=== PATIENT | female | born 2000 | race African-American/Black ===

== ENCOUNTER 2018-10-08 19:29 | Emergency (ER) | payer OTHER ==
[~2018-10-08] VITALS: Ht 162.6 cm; Wt 54.4 kg
[2018-10-08] MEDS ORDERED: FAMOTIDINE 20 MG/2 ML VIAL ONE (19:39)
[2018-10-08] MEDS ORDERED: methylPREDNISolone SOD SUCC PF 125 MG/2 ML VIAL. ONE (19:39)
[2018-10-08] MEDS ORDERED: methylPREDNISolone SOD SUCC PF 125 MG/2 ML VIAL. IV ONE (20:00)
[2018-10-08] MEDS ORDERED: predniSONE 20 MG TABLET PO ONE (20:00)
[2018-10-08] MEDS ORDERED: FAMOTIDINE 20 MG/2 ML VIAL IVP ONE (20:00)
[2018-10-08] MEDS ORDERED: PRED20TA PO (20:05)
--- NOTE | 2018-10-08 20:05 | PHYS DOC ---
Past History Past Medical History: No Pertinent History, Migraines Past Surgical History: No Surgical History, Other Smoking: Non-smoker Alcohol Use: None Drug Use: None Adult General Chief Complaint Chief Complaint: ALLERGIC REACTION HPI HPI Patient is a 18 year old female who presents with complaint of facial swelling and hives. Patient states she has been having hives intermittently over the past month. Seen by primary doctor within the last week and told that she would need to follow with an pull tab dealer for further testing. The patient states she is unsure what is attributing to her hives. Denies any previous history of known allergies and is not currently taking any medications on a regular basis. The patient states that 2 hours ago she took Benadryl due to worsening symptoms. Patient states that she started having swelling around her eyes as well as her lips. Denies any swelling of her tongue or throat and denies any shortness of breath or lightheadedness. Patient has had hives worsening today. Denies any fever. Review of Systems Review of Systems Constitutional: Denies fever or chills [] Eyes: Denies change in visual acuity, redness, or eye pain [] HENT: Facial swelling, denies nasal congestion or sore throat [] Respiratory: Denies cough or shortness of breath [] Cardiovascular: Denies chest pain or edema[] GI: Denies abdominal pain, nausea, vomiting, bloody stools or diarrhea [] : Denies dysuria or hematuria [] Musculoskeletal: Denies back pain or joint pain [] Integument: [place][] Neurologic: Denies headache, focal weakness or sensory changes [] All other systems were reviewed and found to be within normal limits, except as documented in this note. Current Medications Current Medications Current Medications Medications (Trade) Dose Ordered Sig/Andrei Start Time Stop Time Status Last Admin Dose Admin Famotidine (Pepcid Vial) 20 mg 1X ONCE 10/08/18 20:00 10/08/18 20:01 10/08/18 19:49 20 MG Methylprednisolone Sodium Succinate (SOLU-Medrol 125MG VIAL) 125 mg 1X ONCE 10/08/18 20:00 10/08/18 20:01 10/08/18 19:49 125 MG Allergies Allergies Allergies Coded Allergies Type Severity Reaction Last Updated Verified No Known Drug Allergies 01/21/14 No Physical Exam Physical Exam Constitutional: Alert, afebrile, no acute distress. [] HENT: Normocephalic, atraumatic, bilateral external ears normal, mild lip swelling, oropharynx moist, no tongue or pharyngeal swelling, no oral exudates, nose normal. [] Eyes: PERRLA, EOMI, periorbital edema bilaterally, conjunctiva normal, no discharge. [] Neck: Normal range of motion, no tenderness, supple, no stridor. [] Cardiovascular:Heart rate regular rhythm, no murmur [] Lungs & Thorax: Bilateral breath sounds clear to auscultation [] Abdomen: Bowel sounds normal, soft, no tenderness, no masses, no pulsatile masses. [] Skin: Warm, dry, urticarial rash present along anterior chest and bilateral upper arms. [] Back: No tenderness, no CVA tenderness. [] Extremities: No tenderness, no cyanosis, no clubbing, ROM intact, no edema. [] Neurologic: Alert and oriented X 3, normal motor function, normal sensory function, no focal deficits noted. [] Current Patient Data Vital Signs Vital Signs Date Time Temp Pulse Resp B/P (MAP) Pulse Ox O2 Delivery O2 Flow Rate FiO2 10/08/18 19:33 98.7 95 18 100 Room Air Lab Results Not performed EKG EKG Not performed[] Radiology/Procedures Radiology/Procedures Not performed[] Course & Med Decision Making Course & Med Decision Making Pertinent Labs and Imaging studies reviewed. (See chart for details) Patient was given IV Pepcid and Solu-Medrol in the emergency department. Symptoms improving at this time. Given additional oral prednisone. Patient discharged with redness on prescription and advised to take 1-2 Benadryl every 6 -8 hours as needed for itching and hives. Recommended return to emergency department for any worsening symptoms. Patient was understanding and in agreement with treatment plan.[] Dragon Disclaimer Dragon Disclaimer This electronic medical record was generated, in whole or in part, using a voice recognition dictation system. Departure Departure: Impression: Primary Impression: Allergic reaction Disposition: 01 HOME, SELF-CARE Condition: IMPROVED Referrals: LARISSA JONES MD (PCP) Patient Instructions: Hives Additional Instructions: Follow-up with your primary doctor in the next 3-4 days for reevaluation. Return to emergency department for any worsening symptoms. Scripts Prednisone (PREDNISONE) 20 Mg Tablet 3 TAB PO DAILY, #15 TAB Prov: REGGIE MAYER MD 10/08/18 Problem Qualifiers Primary Impression: Allergic reaction Encounter type: initial encounter Qualified Codes: T78.40XA - Allergy, unspecified, initial encounter REGGIE MAYER MD Oct 08, 2018 20:05
[2018-10-08 20:11] VITALS: BP 125/83
== END 2018-10-08 20:14 | disposition home or self-care (01) ==
LOC: ER 19:29
DX: T78.40XA Allergy, unspecified, initial encounter (principal); G43.909 Migraine, unspecified, not intractable, without status migrainosus; X58.XXXA Exposure to other specified factors, initial encounter
CPT/HCPCS: 96374; 96375; 99283; J2930; J3490; J7512

== ENCOUNTER 2019-06-14 22:40 | Emergency (ER) | payer SELFPAY ==
[~2019-06-14] VITALS: Ht 162.6 cm; Wt 54.4 kg
[~2019-06-14 22:40] MED LIST: PRED20TA PO
--- NOTE | 2019-06-14 22:44 | ED.ADGEN ---
Past History Past Medical History: No Pertinent History, Migraines Past Surgical History: No Surgical History, Other Smoking: Non-smoker Alcohol Use: None Drug Use: None Adult General Chief Complaint Chief Complaint " I got this allergic reaction... "to milk.. and I ate some things with milk in it....I started have an allergic response at about 3 PM.... It just gotten worse." HPI HPI Patient is a 19 year old female who presents with above hx and complaints of facial and lip swelling after ingesting some products that had and it. 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 No other new exposures. Onset of symptoms started at approximately 1500 hrs. today. Patient denies any wheezing or stridor. Patient denies any ingestion of any other meds or foods. Patient normally follows with Sammy for medical issues. Review of Systems Review of Systems Constitutional: Denies fever or chills [] Eyes: Denies change in visual acuity, redness, or eye pain [] HENT: Denies nasal congestion or sore throat [. Has]complaints of lip and facial swelling Respiratory: Denies cough or shortness of breath [] Cardiovascular: No additional information not addressed in HPI [] GI: Denies abdominal pain, nausea, vomiting, bloody stools or diarrhea [] : Denies dysuria or hematuria [] Musculoskeletal: Denies back pain or joint pain [] Integument: Denies rash or skin lesions [] Neurologic: Denies headache, focal weakness or sensory changes [] Endocrine: Denies polyuria or polydipsia [] All other systems were reviewed and found to be within normal limits, except as documented in this note. Family History Family History Noncontributory Current Medications Current Medications Current Medications Medications (Trade) Dose Ordered Sig/Andrei Start Time Stop Time Status Last Admin Dose Admin Albuterol Sulfate (Ventolin Hfa Inhaler) 2 puff 1X ONCE 06/14/19 23:15 06/14/19 23:16 DC 06/14/19 23:23 2 PUFF Albuterol/ Ipratropium (Duoneb) 3 ml 1X ONCE 06/14/19 23:15 06/14/19 23:16 DC 06/14/19 23:23 3 ML Diphenhydramine HCl (Benadryl) 50 mg 1X ONCE 06/14/19 23:30 06/14/19 23:31 DC 06/14/19 23:09 50 MG Famotidine (Pepcid Vial) 20 mg 1X ONCE 06/14/19 23:30 06/14/19 23:31 DC 06/14/19 23:09 20 MG Lactated Ringer's 1,000 ml @ 1,000 mls/hr 1X ONCE 06/14/19 23:15 06/15/19 00:14 DC 06/14/19 23:08 1,000 MLS/HR Magnesium Hydroxide (Milk Of Magnesia) 2,400 mg 1X ONCE 06/14/19 23:15 06/14/19 23:16 DC 06/15/19 00:34 2,400 MG Methylprednisolone Sodium Succinate (SOLU-Medrol 125MG VIAL) 125 mg 1X ONCE 06/14/19 23:30 06/14/19 23:31 DC 06/14/19 23:08 125 MG Allergies Allergies Allergies Coded Allergies Type Severity Reaction Last Updated Verified No Known Drug Allergies 01/21/14 No Physical Exam Physical Exam Constitutional: Well developed, well nourished, moderate acute distress, non- toxic appearance. [] HENT: Normocephalic, atraumatic, bilateral external ears normal, oropharynx moist, no oral exudates, nose normal. Swelling on right side of face and lips. No soft tissue swelling of tongue or posterior airway Eyes: PERRLA, EOMI, conjunctiva normal, no discharge. [] Neck: Normal range of motion, no tenderness, supple, no stridor. [] Cardiovascular:Heart rate regular rhythm, no murmur [] Lungs & Thorax: Bilateral breath sounds clear to auscultation [] Abdomen: Bowel sounds normal, soft, no tenderness, no masses, no pulsatile masses. [] Skin: Warm, dry, no erythema, no rash. [] Back: No tenderness, no CVA tenderness. [] Extremities: No tenderness, no cyanosis, no clubbing, ROM intact, no edema. [] Neurologic: Alert and oriented X 3, normal motor function, normal sensory function, no focal deficits noted. [] Psychologic: Affect anxious, judgement normal, mood normal. [] Current Patient Data Vital Signs Vital Signs Date Time Temp Pulse Resp B/P (MAP) Pulse Ox O2 Delivery O2 Flow Rate FiO2 06/14/19 23:45 100 Room Air Lab Results Laboratory Tests Test 8/18/19 23:10 06/15/19 00:13 Urine Collection Type Unknown Urine Color Yellow Urine Clarity Clear Urine pH 8.0 Urine Specific [place] 1.020 Urine Protein Neg (NEG-TRACE) Urine Glucose (UA) Neg mg/dL (NEG) Urine Ketones (Stick) Neg mg/dL (NEG) Urine Blood Neg (NEG) Urine Nitrite Neg (NEG) Urine Bilirubin Neg (NEG) Urine Urobilinogen Dipstick 1 mg/dL (0.2 mg/dL) Urine Leukocyte Esterase Neg (NEG) Urine RBC 0 /HPF (0-2) Urine WBC Occ /HPF (0-4) Urine Squamous Epithelial Cells Few /LPF Urine Bacteria 0 /HPF (0-FEW) Urine Opiates Screen Neg (NEG) Urine Methadone Screen Neg (NEG) Urine Barbiturates Neg (NEG) Urine Phencyclidine Screen Neg (NEG) Urine Amphetamine/Methamphetamine Neg (NEG) Urine Benzodiazepines Screen Neg (NEG) Urine Cocaine Screen Neg (NEG) Urine Cannabinoids Screen Neg (NEG) Urine Ethyl Alcohol Neg (NEG) POC Urine HCG, Qualitative hcg negative (Negative) EKG EKG [] Radiology/Procedures Radiology/Procedures [] Course & Med Decision Making Course & Med Decision Making Pertinent Labs and Imaging studies reviewed. (See chart for details) Patient to avoid all milk products. Patient to take Zantac 150 mg twice day. Patient take Benadryl 25 mg 4 times a day. Patient take prednisone 50 mg a day. Patient uses MDI 2 puffs 4 times a day. Pt. currently declines admission. Will stay with [facility]. [] Final Impression Final Impression 1. Allergic Reaction[] Dragon Disclaimer Dragon Disclaimer This electronic medical record was generated, in whole or in part, using a voice recognition dictation system. Dragon Disclaimer This chart was dictated in whole or in part using Voice Recognition software in a busy, high-work load, and often noisy Emergency Department environment. It may contain unintended and wholly unrecognized errors or omissions. BAUDILIO OWENS MD Jun 14, 2019 22:44
[2019-06-14] MEDS ORDERED: methylPREDNISolone SOD SUCC PF 125 MG/2 ML VIAL. ONE (22:47)
[2019-06-14] MEDS ORDERED: diphenhydrAMINE 50 MG/ML VIAL ONE (22:47)
[2019-06-14] MEDS ORDERED: FAMOTIDINE 20 MG/2 ML VIAL ONE (22:47)
[2019-06-14] MEDS ORDERED: MAGNESIUM HYDROXIDE 2,400 MG/30 ML ORAL.SUSP. PO ONE (23:15)
[2019-06-14] MEDS ORDERED: ALBUTEROL SULFATE 8GM INHALER. INH ONE (23:15)
[2019-06-14] MEDS ORDERED: IPRATRPIUM/ALBUTEROL 0.5/2.5MG 3 ML NEBU. NEB ONE (23:15)
[2019-06-14] MEDS ORDERED: IV RINGERS SOLUTION,LACTATED 1,000 ML IV ONE (23:15)
[2019-06-14] MEDS ORDERED: FAMOTIDINE 20 MG/2 ML VIAL IVP ONE (23:30)
[2019-06-14] MEDS ORDERED: diphenhydrAMINE 50 MG/ML VIAL IVP ONE (23:30)
[2019-06-14] MEDS ORDERED: methylPREDNISolone SOD SUCC PF 125 MG/2 ML VIAL. IV ONE (23:30)
[2019-06-15 00:37] LABS: BARBITURATES NEG (NEG); BENZODIAZEPINES NEG (NEG); CANNABINOIDS NEG (NEG); COCAINE NEG (NEG); METHADONE NEG (NEG); OPIATES NEG (NEG); PHENCYCLIDINE NEG (NEG)
[2019-06-15 00:47] LABS: BACTERIA,URINE 0 /HPF (0-FEW); BILIRUBIN,URINE NEG (NEG); CLARITY,URINE CLEAR; COLOR,URINE YELLOW; GLUCOSE,URINE NEG (NEG); NITRITE,URINE NEG (NEG); RBC,URINE 0 /HPF (0-2); SQUAMOUS EPITHELIAL CELL,UR FEW /LPF; UROBILINOGEN,URINE 1 mg/dL (0.2 mg/dL); WBC,URINE OCC /HPF (0-4)
[2019-06-15 00:49] LABS: AMPHETAMINE/METHAMPHETAMINE NEG (NEG)
[2019-06-15] MEDS ORDERED: RANI-376 PO (02:03)
[2019-06-15] MEDS ORDERED: PRED50TA PO (02:03)
[2019-06-15 02:10] VITALS: BP 118/72
== END 2019-06-15 02:10 | disposition home or self-care (01) ==
LOC: ER 22:40
DX: T78.1XXA Other adverse food reactions, not elsewhere classified, initial encounter (principal); K13.0 Diseases of lips; G43.909 Migraine, unspecified, not intractable, without status migrainosus; X58.XXXA Exposure to other specified factors, initial encounter
CPT/HCPCS: 36415; 80307; 81001; 81025; 94640; 96374; 96375; 99284; J1200; J2930; J3490; J7120; J7613; J7620; 99285-25

== ENCOUNTER 2019-08-15 19:04 | Emergency (ER) | payer OTHER ==
[~2019-08-15] VITALS: Ht 162.6 cm; Wt 54.4 kg
[~2019-08-15 19:04] MED LIST changes: +PRED50TA PO; +RANI-376 PO
[2019-08-15 19:15] VITALS: BP 141/71
--- NOTE | 2019-08-15 19:41 | PHYS DOC ---
Past History Past Medical History: No Pertinent History Past Surgical History: No Surgical History Smoking: Non-smoker Alcohol Use: None Drug Use: None Adult General Chief Complaint Chief Complaint: SKIN RASH/ABSCESS HPI HPI Patient is a 19-year-old female presents with a painful lump on her left buttock. This started yesterday. Her boyfriend squeezed it because there was a "head" on it and got out purulent material. This also significantly helped with the pain. It reoccurred today. Patient is concerned because there is a hole there. And it is also still leaking. Patient denies any fever. She does have some nasal congestion from allergies or a cold. Denies any nausea or vomiting. Increased pain with touch of the area. She has not been on any recent antibiotics. Pain is moderate in intensity.[] Review of Systems Review of Systems Constitutional: Denies fever or chills [] Eyes: Denies change in visual acuity, redness, or eye pain [] HENT: Denies ear pain or sore throat [] Respiratory: Denies cough or shortness of breath [] Cardiovascular: No chest pain or palpitations[] GI: Denies abdominal pain, nausea, vomiting, bloody stools or diarrhea [] : Denies dysuria or hematuria [] Musculoskeletal: Denies back pain or joint pain [] Integument: See history of present illness[] Neurologic: Denies headache, focal weakness or sensory changes [] Endocrine: Denies polyuria or polydipsia [] All other systems were reviewed and found to be within normal limits, except as documented in this note. Allergies Allergies Allergies Coded Allergies Type Severity Reaction Last Updated Verified No Known Drug Allergies 01/21/14 No Physical Exam Physical Exam Constitutional: Well developed, well nourished, no acute distress, non-toxic appearance. [] HENT: Normocephalic, atraumatic, bilateral external ears normal, oropharynx moist, no oral exudates, nose normal. [] Eyes: PERRLA, EOMI, conjunctiva normal, no discharge. [] Neck: Normal range of motion, no tenderness, supple, no stridor. [] Cardiovascular:Heart rate regular rhythm, no murmur [] Lungs & Thorax: Bilateral breath sounds clear to auscultation [] Abdomen: Bowel sounds normal, soft, no tenderness, no masses, no pulsatile masses. [] Skin: Warm, dry, left buttock there is a 3 cm firm region with a central hole that is 3 mm in diameter. There is minimal purulent drainage. Induration is present.[] Back: No tenderness, no CVA tenderness. [] Extremities: No tenderness, no cyanosis, no clubbing, ROM intact, no edema. [] Neurologic: Alert and oriented X 3, normal motor function, normal sensory function, no focal deficits noted. [] Psychologic: Affect normal, judgement normal, mood normal. [] Current Patient Data Vital Signs Vital Signs Date Time Temp Pulse Resp B/P (MAP) Pulse Ox O2 Delivery O2 Flow Rate FiO2 08/15/19 19:15 99.5 105 16 99 Room Air EKG EKG [] Radiology/Procedures Radiology/Procedures [] Course & Med Decision Making Course & Med Decision Making Pertinent Labs and Imaging studies reviewed. (See chart for details) ED course: Patient arrived, was placed in bed, and tolerated exam well. The exam was performed with a fudger present. Findings and plan were discussed with the patient who voiced understanding. All questions were answered. She was discharged in improved condition. Medical decision making: Patient appears to have a cutaneous abscess that is draining. No evidence of systemic toxicity. No evidence of Ac-Rainer syndrome, toxic up several necrolysis, nor other significant illness[] Dragon Disclaimer Dragon Disclaimer This electronic medical record was generated, in whole or in part, using a voice recognition dictation system. Departure Departure: Impression: Primary Impression: Cutaneous abscess of buttock Disposition: HOME, SELF-CARE Condition: IMPROVED Referrals: PCPHOLLIE (PCP) Patient Instructions: Abscess Additional Instructions: Follow-up with your regular doctor in 2 days. If you do not have regular doctor list of local clinics will be provided. Apply warm compresses for 15 minutes at a time, at least 4 times a day to the area. Take the medication as prescribed. Return to the ER if worsening pain, fever of more than 101, or any other concerns. Scripts Meloxicam (MELOXICAM) 7.5 Mg Tablet 7.5 MG PO DAILY for PAIN, #20 TAB Prov: MELVIN NOE DO 08/15/19 Sulfamethoxazole/Trimethoprim (BACTRIM DS TABLET) 1 Each Tablet 1 TAB PO BID for cutaneous abscess, #20 TAB Prov: MELVIN NOE DO 08/15/19 MELVIN NOE DO Aug 15, 2019 19:41
[2019-08-15 19:53] LABS: U PREG PATIENT NEGATIVE (NEG)
[2019-08-15] MEDS ORDERED: SULF1TAB24 PO (20:04)
[2019-08-15] MEDS ORDERED: MELO7.5T29 PO (20:04)
== END 2019-08-15 20:15 | disposition home or self-care (01) ==
LOC: ER 19:04
DX: L02.31 Cutaneous abscess of buttock (principal)
CPT/HCPCS: 81025; 99283

== ENCOUNTER 2020-06-06 13:13 | Emergency (ER) | payer OTHER ==
[~2020-06-06] VITALS: Ht 162.6 cm; Wt 60.2 kg
[~2020-06-06 13:13] MED LIST changes: +MELO7.5T29 PO; +SULF1TAB24 PO
[2020-06-06] MEDS ORDERED: ACETAMINOPHEN 500 MG TABLET PO ONE ×2 (14:13→14:15)
[2020-06-06] MEDS ORDERED: ONDANSETRON PF 4 MG/2 ML VIAL. ONE (14:13)
[2020-06-06] MEDS ORDERED: FAMOTIDINE 20 MG/2 ML VIAL ONE (14:14)
[2020-06-06] MEDS ORDERED: ONDANSETRON PF 4 MG/2 ML VIAL. IVP ONE (14:15)
[2020-06-06] MEDS ORDERED: IV NORMAL SALINE 1,000ML 1,000 ML IV ONE (14:15)
--- NOTE | 2020-06-06 14:38 | EKG ---
[address] [address] Test Date: 2020-06-06 Test Time: 13:35:40 Pat Name: PIERRE MOORE Department: Room: Gender: F [employer] Pilot: [id number] : 2000 Requested By: BOBBI LANGLEY Order Number: [id number] Reading MD: Measurements Intervals [place] Rate: 112 P: 42 [place]: 134 QRS: 30 QRSD: 70 T: 2 QT: 316 QTc: 433 Interpretive Statements SINUS TACHYCARDIA OTHERWISE NORMAL ECG RI6.02 Compared to ECG 06/06/2020 13:34:36 No significant changes
[2020-06-06] MEDS ORDERED: FAMOTIDINE 20 MG/2 ML VIAL IVP ONE (14:45)
[2020-06-06 15:08] LABS: BASO % 0 % (0-3); EOS % 0 % (0-3); HEMOGLOBIN 11.6 g/dL (12.0-15.5); LYMPH # 0.8 x10^3/uL (1.0-4.8); LYMPH % 9 % (24-48); MEAN CORPUSCULAR HEMOGLOBIN 29 pg (25-35); MEAN CORPUSCULAR HGB CONC 33 g/dL (31-37); MEAN CORPUSCULAR VOLUME 87 fL (79-100); MONO # 0.7 x10^3/uL (0.0-1.1); MONO % 7 % (0-9); NEUT # 7.9 x10^3uL (1.8-7.7); NEUT % 84 % (31-73); PLATELET COUNT 276 x10^3/uL (140-400); RED BLOOD COUNT 4.01 x10^6/uL (3.50-5.40); RED CELL DISTRIBUTION WIDTH 12.7 % (11.5-14.5); WHITE BLOOD COUNT 9.5 x10^3/uL (4.0-11.0)
[2020-06-06 15:09] LABS: CALCIUM 8.2 mg/dL (8.5-10.1); CREATININE 0.5 mg/dL (0.6-1.0); GFR 186.7; POTASSIUM 3.4 mmol/L (3.5-5.1)
[2020-06-06 15:15] LABS: ALBUMIN 2.5 g/dL (3.4-5.0); ALBUMIN/GLOBULIN RATIO 0.6 (1.0-1.7); MAGNESIUM 1.7 mg/dL (1.8-2.4); TOTAL BILIRUBIN 0.9 mg/dL (0.2-1.0); TOTAL PROTEIN 6.4 g/dL (6.4-8.2)
[2020-06-06 15:42] LABS: BACTERIA,URINE MOD /HPF (0-FEW); BILIRUBIN,URINE NEG (NEG); CLARITY,URINE HAZY; COLOR,URINE YELLOW; GLUCOSE,URINE NEG (NEG); NITRITE,URINE NEG (NEG); SQUAMOUS EPITHELIAL CELL,UR MOD /LPF; UROBILINOGEN,URINE >=8.0 mg/dL (0.2 mg/dL); WBC,URINE >40 /HPF (0-4)
[2020-06-06 15:43] LABS: HYALINE CASTS, URINE OCC /HPF
[2020-06-06] MEDS ORDERED: MAGNESIUM CHLORIDE ER 64 MG TABLET.ER PO ONE (15:45)
[2020-06-06] MEDS ORDERED: POTASSIUM CHLORIDE 20 MEQ TABLET.ER. PO ONE (15:45)
[2020-06-06] MEDS ORDERED: CEPH-264 PO (16:28)
[2020-06-06] MEDS ORDERED: ONDA4TAB12 PO (16:28)
--- NOTE | 2020-06-06 16:28 | PHYS DOC ---
Past History Past Medical History: No Pertinent History Past Surgical History: No Surgical History Smoking: Non-smoker Alcohol Use: None Drug Use: None General Adult EDM: Chief Complaint: NAUSEA/VOMITING/DIARRHEA HPI: HPI: Patient is a [age] year old [sex] who presents with [] Review of Systems: Review of Systems: Constitutional: Denies fever or chills Eyes: Denies change in visual acuity HENT: Denies nasal congestion or sore throat Respiratory: Denies cough or shortness of breath Cardiovascular: Denies chest pain or edema GI: Denies abdominal pain, nausea, vomiting, bloody stools or diarrhea : Denies dysuria Musculoskeletal: Denies back pain or joint pain Integument: Denies rash Neurologic: Denies headache, focal weakness or sensory changes Endocrine: Denies polyuria or polydipsia Lymphatic: Denies swollen glands Psychiatric: Denies depression or anxiety Heart Score: Risk Factors: Risk Factors: DM, Current or recent (<one month) smoker, HTN, HLP, family history of CAD, obesity. Risk Scores: Score 0 - 3: 2.5% MACE over next 6 weeks - Discharge Home Score 4 - 6: 20.3% MACE over next 6 weeks - Admit for Clinical Observation Score 7 - 10: 72.7% MACE over next 6 weeks - Early Invasive Strategies Current Medications: Current Meds: Current Medications Medications (Trade) Dose Ordered Sig/Andrei Start Time Stop Time Status Last Admin Dose Admin Acetaminophen (Tylenol) 500 mg STK-MED ONCE 06/06/20 14:13 06/06/20 14:14 DC Famotidine (Pepcid Vial) 20 mg 1X ONCE 06/06/20 14:45 06/06/20 14:49 DC 06/06/20 14:40 20 MG Magnesium Chloride (Mag Delay) 64 mg 1X ONCE 06/06/20 15:45 06/06/20 15:46 DC Ondansetron HCl (Zofran) 4 mg STK-MED ONCE 06/06/20 14:13 06/06/20 14:14 DC Potassium Chloride (Klor-Con) 40 meq 1X ONCE 06/06/20 15:45 06/06/20 15:46 DC Sodium Chloride 1,000 ml @ 1,000 mls/hr 1X ONCE 06/06/20 14:15 06/06/20 15:14 DC 06/06/20 14:15 1,000 MLS/HR Allergies: Allergies: Allergies Coded Allergies Type Severity Reaction Last Updated Verified No Known Drug Allergies 01/21/14 No Physical Exam: PE: Constitutional: Well developed, well nourished, no acute distress, non-toxic appearance. [] HENT: Normocephalic, atraumatic, bilateral external ears normal, oropharynx moist, no oral exudates, nose normal. [] Eyes: PERRLA, EOMI, conjunctiva normal, no discharge. [] Neck: Normal range of motion, no tenderness, supple, no stridor. [] Cardiovascular:Heart rate regular rhythm, no murmur [] Lungs & Thorax: Bilateral breath sounds clear to auscultation [] Abdomen: Bowel sounds normal, soft, no tenderness, no masses, no pulsatile masses. [] Skin: Warm, dry, no erythema, no rash. [] Back: No tenderness, no CVA tenderness. [] Extremities: No tenderness, no cyanosis, no clubbing, ROM intact, no edema. [] Neurologic: Alert and oriented X 3, normal motor function, normal sensory function, no focal deficits noted. [] Psychologic: Affect normal, judgement normal, mood normal. [] Current Patient Data: Labs: Laboratory Tests Test 06/06/20 14:25 06/06/20 14:35 White Blood Count 9.5 x10^3/uL (4.0-11.0) Red Blood Count 4.01 x10^6/uL (3.50-5.40) Hemoglobin 11.6 g/dL (12.0-15.5) L Hematocrit 35.0 % (36.0-47.0) L Mean Corpuscular Volume 87 fL (79-100) Mean Corpuscular Hemoglobin 29 pg (25-35) Mean Corpuscular Hemoglobin Concent 33 g/dL (31-37) Red Cell Distribution Width 12.7 % (11.5-14.5) Platelet Count 276 x10^3/uL (140-400) Neutrophils (%) (Auto) 84 % (31-73) H Lymphocytes (%) (Auto) 9 % (24-48) L Monocytes (%) (Auto) 7 % (0-9) Eosinophils (%) (Auto) 0 % (0-3) Basophils (%) (Auto) 0 % (0-3) Neutrophils # (Auto) 7.9 x10^3uL (1.8-7.7) H Lymphocytes # (Auto) 0.8 x10^3/uL (1.0-4.8) L Monocytes # (Auto) 0.7 x10^3/uL (0.0-1.1) Eosinophils # (Auto) 0.0 x10^3/uL (0.0-0.7) Basophils # (Auto) 0.0 x10^3/uL (0.0-0.2) Sodium Level 133 mmol/L (136-145) L Potassium Level 3.4 mmol/L (3.5-5.1) L Chloride Level 99 mmol/L (98-107) Carbon Dioxide Level 22 mmol/L (21-32) Anion Gap 12 (6-14) Blood Urea Nitrogen 3 mg/dL (7-20) L Creatinine 0.5 mg/dL (0.6-1.0) L Estimated GFR (Cockcroft-Gault) 186.7 BUN/Creatinine Ratio 6 (6-20) Glucose Level 82 mg/dL (70-99) Calcium Level 8.2 mg/dL (8.5-10.1) L Magnesium Level 1.7 mg/dL (1.8-2.4) L Total Bilirubin 0.9 mg/dL (0.2-1.0) Aspartate Amino Transferase (AST) 25 U/L (15-37) Alanine Aminotransferase (ALT) 16 U/L (14-59) Alkaline Phosphatase 140 U/L (46-116) H Total Protein 6.4 g/dL (6.4-8.2) Albumin 2.5 g/dL (3.4-5.0) L Albumin/Globulin Ratio 0.6 (1.0-1.7) L Lipase 44 U/L (73-393) L Urine Collection Type Unknown Urine Color Yellow Urine Clarity Hazy Urine pH 6.5 Urine Specific [place] 1.020 Urine Protein Neg (NEG-TRACE) Urine Glucose (UA) Neg mg/dL (NEG) Urine Ketones (Stick) Neg mg/dL (NEG) Urine Blood Neg (NEG) Urine Nitrite Neg (NEG) Urine Bilirubin Neg (NEG) Urine Urobilinogen Dipstick >=8.0 mg/dL (0.2 mg/dL) Urine Leukocyte Esterase Mod (NEG) Urine RBC 1-2 /HPF (0-2) Urine WBC >40 /HPF (0-4) Urine Squamous Epithelial Cells Mod /LPF Urine Bacteria Mod /HPF (0-FEW) Urine Hyaline Casts Occ /HPF Urine Mucus Mod /LPF Vital Signs: Vital Signs Date Time Temp Pulse Resp B/P (MAP) Pulse Ox O2 Delivery O2 Flow Rate FiO2 06/06/20 13:43 99.7 110 20 110/64 (79) 97 Room Air EKG: EKG: @1335 Sinus tachycardia at 112bpm, NO ST elevation, QRS 70ms, QT/QTc 316/433ms Radiology/Procedures: Radiology/Procedures: [] Course & Med Decision Making: Course & Med Decision Making Pertinent Labs and Imaging studies reviewed. (See chart for details) [] Dragon Disclaimer: Dragon Disclaimer: This electronic medical record was generated, in whole or in part, using a voice recognition dictation system. Departure Departure: Impression: Primary Impression: Urinary tract infection Qualified Codes: N30.00 - Acute cystitis without hematuria Additional Impressions: Qualified Codes: Z3A.33 - 33 weeks gestation of Suspected 2019 novel coronavirus infection Nausea vomiting and diarrhea Hypokalemia Hypomagnesemia Disposition: HOME/RESIDENCE PRIOR TO ADM Condition: STABLE Referrals: YESSY PEREZ MD (PCP) Patient Instructions: ABCs of , Diarrhea, [id number], Hypokalemia, Hypomagnesemia, Nausea and Vomiting, [id number], Urinary Tract Infection, [id number] Additional Instructions: You have been tested for or diagnosed with COVID-19. It is an infection caused by a new type of coronavirus. COVID-19 will cause cold-like or mild flu symptoms in most. It can cause more severe symptoms like problems breathing in some. There is no treatment for COVID-19. The body will clear the infection over time. Self-care will help to ease discomfort. Steps to Take: Self-Care Rest as needed. Healthy habits may help you feel better. Steps include: Choose healthy foods including fruits and vegetables. Drink water throughout the day. Get plenty of sleep each night. If you smoke, try to quit. It may ease breathing. Avoid alcohol. Keep Others Healthy The virus can spread to others. Droplets are released every time you sneeze or cough. The droplets can get into the mouth, nose, or eyes of people near you and lead to infection. To lower the chances of spreading COVID-19 to others: Stay at home until your doctor has said it is safe to leave. If you tested positive this will mean staying isolated until both of the following are true: At least 7 days have passed since the start of illness. You are free of fever for at least 72 hours without the use of medicine. During this time: - Avoid public areas, events, or transportation. Do not return to work or school until your doctor has said it is safe to do so. - Call ahead if you need to go to a medical center. Let them know you may have COVID-19. It will help them guide you where to go. They may also ask you to wear a facemask when you come to the office. - If you call for emergency medical services, let them know you may have COVID- 19. While at home: - Try to avoid close contact with others. Stay about 6 feet away. - If possible, spend most of your time in a separate room from others. - Use a face mask if you will be in close contact with others such as sharing a room or vehicle. - Have someone wipe down common surfaces in the home. Use household lead pastor every day on areas like doorknobs, counters, or sinks. - Cough or sneeze into a tissue. Throw the tissue away right after use. If a tissue is not available, cough or sneeze into your elbow. - Wash your hands often. Wash them after sneezing or coughing. Use soap and water and wash for at least 20 seconds. Alcohol based hand line cleaner can be used if soap and water is not available. - Do not prepare food for others. Avoid sharing personal items like forks, spoons, or toothbrushes. - Avoid close contact with pets while you are sick. There is no evidence of the virus passing to pets. This is a safety step until more is known about this virus. Isolation can be frustrating. Social interaction can help. Keep in touch with friends and family through phone and tech options. You can still interact with others in your home, just keep a safe distance of about 6 feet. Follow-up: Your doctors office will check in with you to see if there are any changes in your health. You may be asked to keep track of symptoms to share with them. They will also let you know when you are clear to be in public again. Problems to Look Out For: Contact your doctor if your recovery is not going as you expect. Get emergency care if you have problems such as: - Trouble breathing - Nonstop chest pain or pressure - Changes in awareness, confusion, or problems waking - Lips or face have bluish color - Worsening of symptoms If you think you have an emergency, call for emergency medical services right away. As taken from [facility] Cephalexin (KEFLEX) 500 Mg Capsule 1 CAP PO TID for UTI for 7 Days, #21 CAP 0 Refills Prov: BOBBI LANGLEY DO 06/06/20 Ondansetron (ONDANSETRON ODT) 4 Mg Tab.rapdis 1 TAB PO PRN Q6-8HRS PRN for NAUSEA, #16 TAB Prov: BOBBI LANGLEY DO 06/06/20 BOBBI LANGLEY DO Jun 06, 2020 16:28
[2020-06-06] MEDS ORDERED: IV NORMAL SALINE 50ML 50 ML ONE (16:44)
[2020-06-06] MEDS ORDERED: cefTRIAXone SODIUM 1 GM VIAL ONE (16:45)
[2020-06-06 17:00] VITALS: BP 107/63
--- NOTE | 2020-06-08 10:22 | NUR ---
Attempt to notify patient of COVID result, left message to call back.
--- NOTE | 2020-06-08 13:53 | NUR ---
IP: patient notified of COVID result.
== END 2020-06-06 17:05 | disposition home or self-care (01) ==
LOC: ER 13:13
DX: O23.13 Infections of bladder in pregnancy, third trimester (principal); N30.00 Acute cystitis without hematuria; O21.9 Vomiting of pregnancy, unspecified; R19.7 Diarrhea, unspecified; O99.283 Endocrine, nutritional and metabolic diseases complicating pregnancy, third trimester; E87.6 Hypokalemia; E83.42 Hypomagnesemia; Z20.828 Contact with and (suspected) exposure to other viral communicable diseases; Z3A.33 33 weeks gestation of pregnancy
CPT/HCPCS: 36415; 80053; 81001; 83690; 83735; 85025; 87086; 93005; 96361; 96374; 96375; 99284; J0696; J2405; J3490; J7030; U0003

== ENCOUNTER 2021-09-21 22:11 | Inpatient (IN) | payer SELFPAY ==
[~2021-09-21] VITALS: Ht 162.6 cm; Wt 54.1 kg
[~2021-09-21 22:11] MED LIST changes: +CEPH-264 PO; +ONDA4TAB12 PO
[2021-09-21] MEDS ORDERED: IV RINGERS SOLUTION,LACTATED 1,000 ML IV ONE (22:45)
[2021-09-21] MEDS ORDERED: ONDANSETRON PF 4 MG/2 ML VIAL. IVP ONE (22:45)
[2021-09-21] MEDS ORDERED: IBUPROFEN 600 MG TABLET. PO ONE (22:45)
[2021-09-21 22:52] LABS: BASO % 0 % (0-3); EOS % 0 % (0-3); HEMATOCRIT 41.5 % (36.0-47.0); HEMOGLOBIN 13.3 g/dL (12.0-15.5); LYMPH # 2.2 x10^3/uL (1.0-4.8); LYMPH % 17 % (24-48); MEAN CORPUSCULAR HEMOGLOBIN 27 pg (25-35); MEAN CORPUSCULAR HGB CONC 32 g/dL (31-37); MEAN CORPUSCULAR VOLUME 86 fL (79-100); MONO # 0.9 x10^3/uL (0.0-1.1); MONO % 8 % (0-9); NEUT # 9.5 x10^3uL (1.8-7.7); NEUT % 75 % (31-73); PLATELET COUNT 373 x10^3/uL (140-400); RED BLOOD COUNT 4.86 x10^6/uL (3.50-5.40); RED CELL DISTRIBUTION WIDTH 14.6 % (11.5-14.5); WHITE BLOOD COUNT 12.6 x10^3/uL (4.0-11.0)
[2021-09-21 22:56] LABS: CALCIUM 8.9 mg/dL (8.5-10.1); CREATININE 0.8 mg/dL (0.6-1.0); GFR 107.6; POTASSIUM 3.2 mmol/L (3.5-5.1)
[2021-09-21 23:02] LABS: ALBUMIN 4.1 g/dL (3.4-5.0); ALBUMIN/GLOBULIN RATIO 1.1 (1.0-1.7); TOTAL BILIRUBIN 0.6 mg/dL (0.2-1.0)
[2021-09-21 23:02] LABS: BACTERIA,URINE 0 /HPF (0-FEW); BILIRUBIN,URINE NEG (NEG); CLARITY,URINE CLEAR; COLOR,URINE YELLOW; GLUCOSE,URINE NEG (NEG); NITRITE,URINE NEG (NEG); RBC,URINE 0 /HPF (0-2); SQUAMOUS EPITHELIAL CELL,UR MOD /LPF; UROBILINOGEN,URINE 0.2 mg/dL (0.2 mg/dL)
--- NOTE | 2021-09-21 23:03 | RAD ---
XR CHEST 2V History: Cough Comparison: None. Technique: PA and lateral chest radiographs. Findings: The lungs are adequately and symmectrically inflated. No airspace consolidation, pleural effusion or pneumothorax. The cardiomediastinal silhoutte and pulmonary vasculature are within normal limits. Sof t tissues and osseous structures are unremarkable. Impression: 1. No acute cardiopulmonary process. Electronically signed by: Flo Morrell MD (09/21/2021 11:00 PM) [facility]
--- NOTE | 2021-09-21 23:41 | RAD ---
CT ABDOMEN+PELVIS WO History: Abdominal pain, fever, vomiting, short of air Comparison: None. Technique: CT abdomen pelvis without contrast. Findings: Minimal hazy left lower lobe airspace opacities. 5 mm left lower lobe nodule (axial 18). No pleural e ffusion. Rounded mass at the inferior right liver segment 6 measuring 6.6 x 4.7 x 5.9 cm. Normal gall bladder. Pancreas, spleen, adrenal glands, and kidneys are unremarkable. The stomach and small bowel are normal. No appendicitis. Mild colonic stool burden. No pericolonic inflammatory changes. The blad redd is, uterus and adnexa are unremarkable. There is no free air or free fluid. Small fat-containing umbilical hernia. The osseous structures are unremarkable. Impression: 1. Rounded mass inferior right liver segment 6 measuring up to 6.6 cm. In the absence of known hepat ic disease as is favored to represent adenoma or focal nodular hyperplasia. Recommend contrast enhanc ed liver MRI for further characterization. 2. Hazy left lower lobe opacities may represent early or mild pneumonia. 3. Left lower lobe 5 mm pulmonary nodule. In a low risk patient, no follow-up is prior. In high-risk patient optional follow-up noncontrast chest CT in 12 months. ------ Exposure: One or more of the following individualized dose reduction techniques were utilized for thi s examination: 1. Automated exposure control 2. Adjustment of the mA and/or kV according to patient size 3. Use of iterative reconstruction technique. Electronically signed by: Flo Morrell MD (09/21/2021 11:39 PM) [facility]
[2021-09-22] MEDS ORDERED: guaiFENesin/CODEINE 100mg/10mg 5 ML LIQUID PO PRN
[2021-09-22] MEDS ORDERED: levoFLOXacin 500 MG TABLET PO ONE
--- NOTE | 2021-09-22 00:14 | PHYS DOC ---
Past History Past Medical History: No Pertinent History Past Surgical History: No Surgical History Smoking: Non-smoker Alcohol Use: None Drug Use: None Adult General Chief Complaint Chief Complaint: NAUSEA/VOMITING/DIARRHEA HPI HPI Patient is a 21-year-old female who presents with a chief complaint of chills, body aches, generalized abdominal discomfort and cough. States that her daughter that lives other recently had similar symptoms but hers have now resolved. States she thinks she had a fever at home but did not take her temperature but she felt hot and had chills. Denies any rash. Denies any recent travel, traumas, chest pain, shortness of breath, vomiting, diarrhea, dysuria, hematuria or blood in the stool. Review of Systems Review of Systems Review of systems otherwise unremarkable except noted in HPI Current Medications Current Medications Current Medications Medications (Trade) Dose Ordered Sig/Andrei Start Time Stop Time Status Last Admin Dose Admin Ibuprofen (Motrin) 600 mg 1X ONCE 09/21/21 22:45 09/21/21 22:46 DC 09/21/21 22:51 600 MG Lactated Ringer's 1,000 ml @ 1,000 mls/hr 1X ONCE 09/21/21 22:45 09/21/21 23:44 DC 09/21/21 22:41 1,000 MLS/HR Ondansetron HCl (Zofran) 4 mg 1X ONCE 09/21/21 22:45 09/21/21 22:46 DC 09/21/21 22:51 4 MG Allergies Allergies Allergies Coded Allergies Type Severity Reaction Last Updated Verified No Known Drug Allergies 01/21/14 No Physical Exam Physical Exam Constitutional: Well developed, well nourished, no acute distress, non-toxic appearance. [] HENT: Normocephalic, atraumatic, bilateral external ears normal, oropharynx moist, no oral exudates, nose normal. [] Eyes: conjunctiva normal, no discharge. [] Neck: Normal range of motion, no tenderness, supple, no stridor. [] Cardiovascular:Heart rate regular rhythm, no murmur [] Lungs & Thorax: Bilateral scattered rhonchi, worse on the left, no wheezing, no increased work of breathing Abdomen: soft, no tenderness, no masses, no pulsatile masses. [] Skin: Warm, dry, no erythema, no rash. [] Back: no CVA tenderness. [] Extremities: No tenderness, ROM intact, no edema. [] Neurologic: Alert and oriented X 3, no focal deficits noted. [] Psychologic: Affect normal, judgement normal, mood normal. [] Current Patient Data Lab Results Laboratory Tests Test 09/21/21 22:20 09/21/21 22:26 09/21/21 22:30 Urine Collection Type Unknown Urine Color Yellow Urine Clarity Clear Urine pH 5.5 Urine Specific [place] >=1.030 Urine Protein Neg (NEG-TRACE) Urine Glucose (UA) Neg mg/dL (NEG) Urine Ketones (Stick) Trace mg/dL (NEG) Urine Blood Neg (NEG) Urine Nitrite Neg (NEG) Urine Bilirubin Neg (NEG) Urine Urobilinogen Dipstick 0.2 mg/dL (0.2 mg/dL) Urine Leukocyte Esterase Trace (NEG) Urine RBC 0 /HPF (0-2) Urine WBC 1-4 /HPF (0-4) Urine Squamous Epithelial Cells Mod /LPF Urine Bacteria 0 /HPF (0-FEW) POC Urine HCG, Qualitative hcg negative (Negative) White Blood Count 12.6 x10^3/uL (4.0-11.0) H Red Blood Count 4.86 x10^6/uL (3.50-5.40) Hemoglobin 13.3 g/dL (12.0-15.5) Hematocrit 41.5 % (36.0-47.0) Mean Corpuscular Volume 86 fL (79-100) Mean Corpuscular Hemoglobin 27 pg (25-35) Mean Corpuscular Hemoglobin Concent 32 g/dL (31-37) Red Cell Distribution Width 14.6 % (11.5-14.5) H Platelet Count 373 x10^3/uL (140-400) Neutrophils (%) (Auto) 75 % (31-73) H Lymphocytes (%) (Auto) 17 % (24-48) L Monocytes (%) (Auto) 8 % (0-9) Eosinophils (%) (Auto) 0 % (0-3) Basophils (%) (Auto) 0 % (0-3) Neutrophils # (Auto) 9.5 x10^3uL (1.8-7.7) H Lymphocytes # (Auto) 2.2 x10^3/uL (1.0-4.8) Monocytes # (Auto) 0.9 x10^3/uL (0.0-1.1) Eosinophils # (Auto) 0.0 x10^3/uL (0.0-0.7) Basophils # (Auto) 0.0 x10^3/uL (0.0-0.2) Sodium Level 142 mmol/L (136-145) Potassium Level 3.2 mmol/L (3.5-5.1) L Chloride Level 105 mmol/L (98-107) Carbon Dioxide Level 26 mmol/L (21-32) Anion Gap 11 (6-14) Blood Urea Nitrogen 10 mg/dL (7-20) Creatinine 0.8 mg/dL (0.6-1.0) Estimated GFR (Cockcroft-Gault) 107.6 BUN/Creatinine Ratio 13 (6-20) Glucose Level 92 mg/dL (70-99) Calcium Level 8.9 mg/dL (8.5-10.1) Total Bilirubin 0.6 mg/dL (0.2-1.0) Aspartate Amino Transferase (AST) 23 U/L (15-37) Alanine Aminotransferase (ALT) 28 U/L (14-59) Alkaline Phosphatase 88 U/L (46-116) Total Protein 8.0 g/dL (6.4-8.2) Albumin 4.1 g/dL (3.4-5.0) Albumin/Globulin Ratio 1.1 (1.0-1.7) Lipase 49 U/L (73-393) L EKG EKG [] Radiology/Procedures Radiology/Procedures [] Heart Score C/O Chest Pain: No Risk Factors: Risk Factors: DM, Current or recent (<one month) smoker, HTN, HLP, family history of CAD, obesity. Risk Scores: Risk Factors: DM, Current or recent (<one month) smoker, HTN, HLP, family history of CAD, obesity. Course & Med Decision Making Course & Med Decision Making Patient is a 21-year-old female who presents with a chief complaint of Covid/flu/cold symptoms and productive cough Vital signs notable for tachycardia. Physical exam noted above. Patient placed on monitor with IV access established with IV fluid begun. Given fluid, nausea medicine, pain medicine and cough medicine. Covid swab pending. Started on antibiotics given findings of pneumonia on CT. Discussed all findings with patient including findings on abdominal CT. Recommended admission to the hospital for continued evaluation and treatment and fluid resuscitation given tachycardia despite resuscitation. Patient grateful, verbalized understanding and agreed with plan of admission. [] Dragon Disclaimer Dragon Disclaimer This electronic medical record was generated, in whole or in part, using a voice recognition dictation system. Departure Departure: Impression: Primary Impression: Pneumonia Additional Impressions: Sepsis Person under investigation for COVID-19 Disposition: 09 ADMITTED INPATIENT Admitting Physician: Kenn Song Referrals: PCP,NO (PCP) Problem Qualifiers LINDA HUYNH MD Sep 22, 2021 00:14
[2021-09-22] MEDS ORDERED: IV RINGERS SOLUTION,LACTATED 1,000 ML IV ONE (00:15)
[2021-09-22] MEDS ORDERED: ONDANSETRON PF 4 MG/2 ML VIAL. IVP PRN (00:15)
[2021-09-22] MEDS ORDERED: AZITHROMYCIN 250 MG TABLET. PO ONE (00:15)
[2021-09-22 00:34] LABS: BARBITURATES NEG (NEG); BENZODIAZEPINES NEG (NEG); CANNABINOIDS NEG (NEG); COCAINE NEG (NEG); METHADONE NEG (NEG); OPIATES NEG (NEG); PHENCYCLIDINE NEG (NEG)
[2021-09-22 00:38] LABS: AMPHETAMINE/METHAMPHETAMINE NEG (NEG)
[2021-09-22] MEDS ORDERED: cefTRIAXone SODIUM 1 GM VIAL ONE (00:42)
[2021-09-22] MEDS ORDERED: IV NORMAL SALINE 50ML 50 ML ONE (00:42)
[2021-09-22 02:12] VITALS: BP 121/78
[2021-09-22] MEDS ORDERED: IV RINGERS SOLUTION,LACTATED 1,000 ML IV SCH (02:15)
[2021-09-22] MEDS ORDERED: ACETAMINOPHEN 325 MG TABLET PO PRN (02:15)
[2021-09-22] MEDS ORDERED: MEDR150D3 IM (02:45)
[2021-09-22 06:04] VITALS: BP 136/81
[2021-09-22 06:30] VITALS: BP 104/67
--- NOTE | 2021-09-22 09:13 | HP ---
DATE OF SERVICE: 09/22/2021 ADMIT DATE: 09/22/2021 ATTENDING PHYSICIAN: Dr. Song. CHIEF COMPLAINT: Nausea, vomiting, diarrhea and fevers. HISTORY OF PRESENT ILLNESS: The patient is a 21-year-old female admitted to the ED with new onset of chills, body aches, nausea, vomiting and diarrhea. She has a self-limiting gastroenteritis. The CT of the abdomen was unremarkable without any evidence of obstruction; however, there was a questionable infiltrate cut through the bases. The chest x-ray was entirely clear. She is a nonsmoker. She was admitted with a tentative diagnosis of pneumonia; in my exam of her, she does not have pneumonia. She most likely has a self limiting gastroenteritis. She was dehydrated. She was a bit tachycardic. By the time I saw her the next day with IV fluid resuscitation, her heart rate was down to 80 per minute. PAST MEDICAL HISTORY: Significant for two pregnancies. She has 2 children, ages 3 and 1 respectively. She is not on any prescription meds. There is no history of hypertension, heart disease, smoking or asthma. CURRENT MEDICATIONS: None. ALLERGIES: She has no known drug allergies. FAMILY HISTORY: Noncontributory. REVIEW OF SYSTEMS: Significant for the myalgias, low-grade fevers. All other systems reviewed and determined to be negative. PHYSICAL EXAMINATION: GENERAL: When I saw her, this is a pleasant young female. VITAL SIGNS: Initial vital signs showed a blood pressure of 140/70; her pulse initially was 135 per minute; by the time I saw her it was down to 80 per minute. She was afebrile and oxygen saturation 98% on room air. HEENT: Head is without trauma. Pupils are reactive. Sclerae nonicteric. Oropharynx clear. NECK: Supple, no bruits. LUNGS: Clear. CARDIOVASCULAR: Regular heart tones. ABDOMEN: Soft. EXTREMITIES: Without edema. NEUROLOGIC: Focally intact. Speech is fluent. PERTINENT LABORATORY STUDIES: The hemoglobin is 13.3 g/dL with a white count of 12,600. Her serology initially was negative for coronavirus. Urinalysis was clear. Toxicology showed no evidence of recreational drugs. Her chemistry panel showed a sodium 142, potassium 3.2 mEq. This will be followed as an outpatient. Creatinine 0.8 mg%. Transaminases are normal. CT of the abdomen as noted. ASSESSMENT: 1. A 21-year-old female with self-limiting gastroenteritis. 2. Tentative diagnosis of pneumonia has been ruled out. She does not have pneumonia at this time clinically. 3. Dehydration. 4. Tachycardia, resolved. PLAN: 1. Admission to the hospital overnight. 2. IV hydration. 3. Empiric antibiotics. 4. Diet as tolerated. FORTINO DR: Ravi TID: [id number]
--- NOTE | 2021-09-22 09:50 | DS ---
DATE OF DISCHARGE: 09/22/2021 ATTENDING PHYSICIAN: Dr. Song. FINAL DISCHARGE DIAGNOSES: 1. Self-limiting gastroenteritis, resolved. 2. Dehydration and tachycardia, resolved. 3. Asymptomatic hypokalemia. 4. Tentative diagnosis pneumonia. This has been ruled out. HISTORY AND PHYSICAL: The patient is a 21-year-old female. She is a nonsmoker. She is admitted with fevers, chills, nausea, vomiting, diarrhea. Clinically, she had a self-limiting gastroenteritis. She was tachycardic. She was admitted with dehydration. She also had a questionable infiltrate on cutting through the bases on the CT of the abdomen. Her chest x-ray was entirely clear. PHYSICAL EXAMINATION: Please see the dictated note. PERTINENT LABORATORY AND X-RAY STUDIES: Hemoglobin 13.0 g/dL, white count 12,600. Potassium slightly diminished at 3.2 mEq. This has been replaced. Transaminases are normal. Lipase is normal. CT of the abdomen as noted. Chest x-ray was entirely clear. COURSE IN THE HOSPITAL: She was admitted. She was started on IV hydration. Regular diet and empiric Rocephin. I examined the patient. She is afebrile. Her chest x-ray was clear. I do not find any evidence of pneumonia. She was sent home on the second hospital day, there are no scheduled meds. I recommended 5 more days of cephalexin 500 mg p.o. t.i.d., just in case she does have early pneumonia. She is a nonsmoker. She had a negative coronavirus serology. She was discharged then from our hospital in stable condition with explicit drug and followup care. ABEL/KELECHI DR: Ravi TID: [id number]
== END 2021-09-22 12:58 | disposition home or self-care (01) | DRG 871 ==
LOC: ER 22:11 → 1 SOUTH 09-22 00:08
PROVIDERS: ADMIT Hospitalist; ATTEND Hospitalist
DX: A41.9 Sepsis, unspecified organism (principal); J18.9 Pneumonia, unspecified organism; Z20.822 Contact with and (suspected) exposure to COVID-19; K52.9 Noninfective gastroenteritis and colitis, unspecified; E86.0 Dehydration; E87.6 Hypokalemia
CPT/HCPCS: 36415; 71046; 74176; 80053; 80307; 81001; 81025; 83690; 85025; 87040; 87086; 87426; 96361; 96374; J0696; J2405; J7120; U0003; 99285-25

== ENCOUNTER 2021-10-13 15:31 | Emergency (ER) | payer SELFPAY ==
[~2021-10-13] VITALS: Ht 162.6 cm; Wt 52.0 kg
[~2021-10-13 15:31] MED LIST changes: +MEDR150D3 IM
[2021-10-13 15:52] VITALS: BP 145/85
--- NOTE | 2021-10-13 16:20 | PHYS DOC ---
Past History Past Medical History: No Pertinent History Past Surgical History: No Surgical History Smoking: Non-smoker Alcohol Use: None Drug Use: None General Adult EDM: Chief Complaint: BREAST PROBLEM HPI: HPI: 21-year-old female presents with concern for a lump in her right breast. The patient has noticed over the last week that there is a palpable mass just lateral of the nipple of the right breast. This extends from the 10:00 to 12 o'clock position. Patient denies any pain. She has had no discoloration of the skin. The patient has a [id number]-cntmy-wma but she did not breast-feed and is not currently breast-feeding. She denies fever or chills. Family history of breast cancer in an aunt. Review of Systems: Review of Systems: Constitutional: Denies fever or chills Eyes: Denies change in visual acuity HENT: Denies nasal congestion or sore throat Respiratory: Denies cough or shortness of breath Cardiovascular: Denies chest pain or edema GI: Denies abdominal pain, nausea, vomiting, bloody stools or diarrhea : Denies dysuria Musculoskeletal: Denies back pain or joint pain Integument: Right breast mass Neurologic: Denies headache, focal weakness or sensory changes Endocrine: Denies polyuria or polydipsia Lymphatic: Denies swollen glands Psychiatric: Denies depression or anxiety Allergies: Allergies: Allergies Coded Allergies Type Severity Reaction Last Updated Verified No Known Drug Allergies 10/13/21 No Physical Exam: PE: Constitutional: Well developed, well nourished, no acute distress, non-toxic appearance. [] HENT: Normocephalic, atraumatic, bilateral external ears normal, oropharynx mo ist, no oral exudates, nose normal. [] Eyes: PERRLA, EOMI, conjunctiva normal, no discharge. [] Neck: Normal range of motion, no tenderness, supple, no stridor. [] Cardiovascular:Heart rate regular rhythm, no murmur [] Lungs & Thorax: Bilateral breath sounds clear to auscultation [] Abdomen: Bowel sounds normal, soft, no tenderness, no masses, no pulsatile masses. [] Skin: Half centimeter to centimeter firm palpable mass in the 10 to 12 o'clock position of the right breast just lateral to the nipple. No skin changes. [] Back: No tenderness, no CVA tenderness. [] Extremities: No tenderness, no cyanosis, no clubbing, ROM intact, no edema. [] Neurologic: Alert and oriented X 3, normal motor function, normal sensory function, no focal deficits noted. [] Psychologic: Affect normal, judgement normal, mood normal. [] Current Patient Data: Vital Signs: Vital Signs Date Time Temp Pulse Resp B/P (MAP) Pulse Ox O2 Delivery O2 Flow Rate FiO2 10/13/21 15:52 99.0 81 18 145/85 (105) 99 Room Air EKG: EKG: [] Radiology/Procedures: Radiology/Procedures: [] Heart Score: C/O Chest Pain: N/A Risk Factors: Risk Factors: DM, Current or recent (<one month) smoker, HTN, HLP, family history of CAD, obesity. Risk Scores: Score 0 - 3: 2.5% MACE over next 6 weeks - Discharge Home Score 4 - 6: 20.3% MACE over next 6 weeks - Admit for Clinical Observation Score 7 - 10: 72.7% MACE over next 6 weeks - Early Invasive Strategies Course & Med Decision Making: Course & Med Decision Making Pertinent Labs and Imaging studies reviewed. (See chart for details) The patient does have a palpable breast mass. It does not appear to be cellulitic. I attempted to order a breast ultrasound but was told by radiology that we cannot do a mass work-up in the ED. This must all be ordered and managed outpatient. I have strongly advised the patient to call her doctor and get this ordered as soon as possible. She is stable for discharge at this time. [] Ross Disclaimer: Ross Disclaimer: This electronic medical record was generated, in whole or in part, using a voice recognition dictation system. Departure Departure: Impression: Primary Impression: Mass of breast, right Qualified Codes: N63.12 - Unspecified lump in the right breast, upper inner quadrant Disposition: 01 HOME / SELF CARE / HOMELESS Condition: STABLE Referrals: PCP,HOLLIE (PCP) Patient Instructions: Breast Self-Awareness Additional Instructions: Please call your primary care physician and schedule a breast ultrasound as soon as possible. JENIFER OSBORNE DO Oct 13, 2021 16:20
== END 2021-10-13 16:30 | disposition home or self-care (01) ==
LOC: ER 15:31
DX: N63.12 Unspecified lump in the right breast, upper inner quadrant (principal)
CPT/HCPCS: 99281-25